=== PATIENT | female | born 1990 | race Asian ===

== ENCOUNTER 2021-07-12 22:50 | Observation (INO) | payer BC ==
[~2021-07-12] VITALS: Ht 157.5 cm; Wt 72.1 kg
== END 2021-07-13 00:50 | disposition home or self-care (01) ==
LOC: MLD 22:50
PROVIDERS: ADMIT Obstetrics & Gynecology; ATTEND Obstetrics & Gynecology
DX: O46.93 Antepartum hemorrhage, unspecified, third trimester (principal); Z3A.37 37 weeks gestation of pregnancy
CPT/HCPCS: G0378